=== PATIENT | female | born 1965 | race Caucasian/White ===

== ENCOUNTER → 2016-08-21 | Outpatient (CLI) | payer OTHER ==
[2016-08-21 08:25] LABS: HEMOGLOBIN 13.5 g/dL (11.7-16.4)
== END | disposition home or self-care (01) ==
LOC: LAB 08:05
PROVIDERS: ATTEND Physician Assistant
DX: R53.83 Other fatigue (principal); R42 Dizziness and giddiness
CPT/HCPCS: 36415; 85025

== ENCOUNTER → 2016-09-04 | Outpatient (CLI) | payer SELFPAY | END | disposition home or self-care (01) | LOC: CFH 14:40 | PROVIDERS: ATTEND Physician Assistant | DX: D25.2 Subserosal leiomyoma of uterus (principal); N85.2 Hypertrophy of uterus; N83.201 Unspecified ovarian cyst, right side; N85.00 Endometrial hyperplasia, unspecified | CPT/HCPCS: 76830 ==

== ENCOUNTER → 2016-11-19 | Outpatient (CLI) | payer OTHER ==
[~2016-11-19] MED LIST: IBUP800T PO; VITAMIN B; VITAMIN C; VITAMIN D
[2016-11-19 09:01] LABS: ASPARTATE AMINO TRANSFERASE 19 U/L (15-37); BLOOD UREA NITROGEN 12 mg/dL (7-18)
== END | disposition home or self-care (01) ==
LOC: STAR 07:59
PROVIDERS: ATTEND Specialist
DX: Z01.818 Encounter for other preprocedural examination (principal)
CPT/HCPCS: 36415; 71020; 80053; 84703; 85025; 85610; 85730; 93005

== ENCOUNTER 2016-11-30 06:51 | Inpatient (IN) | payer OTHER ==
[2016-11-19 08:17] VITALS: BP 123/81
[~2016-11-30] VITALS: Ht 165.1 cm; Wt 81.0 kg
[2016-11-30] MEDS ORDERED: ACET325T14 PO (07:26)
[2016-11-30] MEDS ORDERED: LIDOCAINE 1%, 2ML SQ PRN (07:30)
[2016-11-30] MEDS ORDERED: BUPIVACAINE/PF 0.25% ONE (07:43)
[2016-11-30] MEDS ORDERED: HEPARIN 1,000 UNITS/ML, 10ML ONE (07:43)
[2016-11-30 07:44] LABS: HCG UR OBC PASS
[2016-11-30] MEDS ORDERED: EPINEPHRINE 1 MG/ML, 1ML ONE (07:45)
[2016-11-30] MEDS: LACTATED RINGERS 1,000 ML IV SCH (08:10)
[2016-11-30] MEDS ORDERED: MIDAZOLAM 1 MG/ML, 2ML ONE (08:15)
[2016-11-30] MEDS ORDERED: FENTANYL PF 250 MCG/5ML ONE (08:15)
[2016-11-30] MEDS ORDERED: DEXAMETHASONE 4 MG/ML, 1ML ONE (09:34)
[2016-11-30] MEDS ORDERED: CEFOTETAN 2 GM ONE (09:34)
[2016-11-30] MEDS ORDERED: ROCURONIUM 10 MG/ML ONE (09:34)
[2016-11-30] MEDS ORDERED: KETOROLAC 30 MG/1 ML ONE (09:34)
[2016-11-30] MEDS ORDERED: ONDANSETRON 2MG/ML, 2ML ONE (09:34)
[2016-11-30] MEDS ORDERED: PROPOFOL 10 MG/ML, 20ML ONE (09:34)
[2016-11-30] MEDS ORDERED: LABETALOL 5MG/ML, 20ML IV PRN (11:00)
[2016-11-30] MEDS ORDERED: ONDANSETRON 2MG/ML, 2ML IVPush PRN ×2 (11:00→13:00)
[2016-11-30] MEDS ORDERED: FENTANYL PF 100 MCG/2ML IV PRN (11:00)
[2016-11-30] MEDS ORDERED: ACETAMINOPHEN 325 MG TABLET PO PRN (11:00)
[2016-11-30] MEDS ORDERED: OXYcodone 5 MG/5 ML ORAL.SOL UDC PO PRN (11:00)
[2016-11-30] MEDS ORDERED: MEPERIDINE/PF 25MG/0.5ML IVPush PRN (11:00)
[2016-11-30] MEDS ORDERED: PROMETHAZINE 25 MG/ML, 1ML IV PRN (11:00)
[2016-11-30] MEDS ORDERED: FENTANYL PF 100 MCG/2ML ONE (11:09)
[2016-11-30] MEDS ORDERED: MORPHINE SULFATE 4 MG/ML, 1ML ONE (12:03)
[2016-11-30] MEDS ORDERED: OXYcodone 5 MG/5 ML ORAL.SOL UDC ONE (12:49)
[2016-11-30] MEDS ORDERED: HYDROmorphone 1 MG/ML, 1ML ONE (12:49)
[2016-11-30] MEDS ORDERED: ACETAMINOPHEN 650 MG/20.3 ML UDC ONE (12:49)
[2016-11-30] MEDS: HYDROmorphone 1 MG/ML, 1ML IV PRN ×2 (12:55→13:11)
[2016-11-30] MEDS ORDERED: ACETAMINOPHEN 650 MG SUPP PR PRN (13:00)
[2016-11-30] MEDS ORDERED: ZOLPIDEM 5MG TABLET PO PRN (13:00)
[2016-11-30 14:23] VITALS: BP 94/63
[2016-11-30] MEDS: D5%-0.45NACL+KCL 20MEQ 1,000 ML IV SCH (16:56)
[2016-11-30] MEDS: KETOROLAC 30 MG/1 ML IVPush PRN (16:59)
[2016-11-30 19:33] VITALS: BP 105/68
[2016-11-30] MEDS: OXYcodone/APAP 5/325MG TABLET PO PRN (20:11)
[2016-12-01] MEDS: OXYcodone/APAP 5/325MG TABLET PO PRN ×2 (00:36→06:26)
[2016-12-01] MEDS: D5%-0.45NACL+KCL 20MEQ 1,000 ML IV SCH (01:12)
[2016-12-01 03:29] VITALS: BP 96/61
[2016-12-01] MEDS ORDERED: MEDROXYPROGESTERONE ACETATE 150 MG/ML IM ONE (05:00)
[2016-12-01 07:30] VITALS: BP 104/68
[2016-12-01] MEDS: KETOROLAC 30 MG/1 ML IVPush PRN ×3 (08:30→21:08)
[2016-12-01 13:08] VITALS: BP 103/68
[2016-12-01] MEDS: morphine SULFATE 10 MG/ML, 1ML IVPush PRN ×2 (17:15→17:59)
[2016-12-01 18:58] VITALS: BP 128/81
[2016-12-02] MEDS: OXYcodone/APAP 5/325MG TABLET PO PRN ×3 (01:17→13:16)
[2016-12-02 01:22] VITALS: BP 143/85
[2016-12-02] MEDS ORDERED: OXYC-223 PO (06:49)
[2016-12-02] MEDS ORDERED: ONDA4TAB13 SL (06:49)
[2016-12-02 07:30] VITALS: BP 122/79
[2016-12-02 08:00] VITALS: BP 122/79
[2016-12-02] MEDS: KETOROLAC 30 MG/1 ML IVPush PRN (11:05)
[2016-12-02 11:19] LABS: PATH.CAST-FLAG NOT PRESENT; SPERM-FLAG NOT PRESENT; SRC-FLAG NOT PRESENT; XTAL-FLAG NOT PRESENT; YLC-FLAG NOT PRESENT
== END 2016-12-02 14:25 | disposition home or self-care (01) | DRG 743 ==
LOC: OUT 06:51 → ORIP 12:31 → 3NW 14:12
PROVIDERS: ADMIT Specialist; ATTEND Specialist
PROC: 0UT2FZZ Resection of Bilateral Ovaries, Via Natural or Artificial Opening With Percutaneous Endoscopic Assistance (ICD-10-PCS; 2016-11-30)
PROC: 0UT7FZZ Resection of Bilateral Fallopian Tubes, Via Natural or Artificial Opening With Percutaneous Endoscopic Assistance (ICD-10-PCS; 2016-11-30)
PROC: 0DQP4ZZ Repair Rectum, Percutaneous Endoscopic Approach (ICD-10-PCS; 2016-11-30)
PROC: 8E0W4CZ Robotic Assisted Procedure of Trunk Region, Percutaneous Endoscopic Approach (ICD-10-PCS; 2016-11-30)
PROC: 0UT9FZZ Resection of Uterus, Via Natural or Artificial Opening With Percutaneous Endoscopic Assistance (ICD-10-PCS; principal; 2016-11-30 09:30)
DX: D25.9 Leiomyoma of uterus, unspecified (principal); N80.3 Endometriosis of pelvic peritoneum; Z88.5 Allergy status to narcotic agent; Z80.3 Family history of malignant neoplasm of breast; Z80.8 Family history of malignant neoplasm of other organs or systems
CPT/HCPCS: 36415; 81001; 81025; 85025; 86850; 86900; 86923; 87086; 88307; 88331; C1729; J0171; J1100; J1170; J1644; J1885; J2250; J2405; J2704; J3010; J3490; J1050; J2270; J3480; J7120; S0074

== ENCOUNTER → 2017-07-21 | Outpatient (CLI) | payer OTHER ==
[~2017-07-21] MED LIST changes: +ACET325T14 PO; +IBUP-1223 PO; -IBUP800T PO; +ONDA4TAB13 SL; +OXYC-306 PO
== END ==
LOC: CFH 08:06
PROVIDERS: ATTEND Specialist
DX: Z13.820 Encounter for screening for osteoporosis (principal); Z78.0 Asymptomatic menopausal state
CPT/HCPCS: 77080

== ENCOUNTER → 2018-11-21 | Outpatient (CLI) | payer OTHER ==
[2018-11-21 11:01] LABS: BASOPHILS # (AUTO) 0.04 x10^3/uL (0-0.1); BASOPHILS % (AUTO) 1 % (0-1); EOSINOPHILS # (AUTO) 0.16 x10^3/uL (0-0.4); EOSINOPHILS % (AUTO) 2 % (1-7); LYMPHOCYTES # (AUTO) 2.08 x10^3/uL (1-3.4); LYMPHOCYTES % (AUTO) 29 % (22-44); MD NO; MEAN CORPUSCULAR HEMOGLOBIN 30.3 pg (27.0-34.8); MEAN CORPUSCULAR HGB CONC 33.2 g/dL (32.4-35.8); MEAN CORPUSCULAR VOLUME 91.3 fL (80-100); MEAN PLATELET VOLUME 8.1 fL (7.4-10.4); MONOCYTES # (AUTO) 0.51 x10^3/uL (0.2-0.8); MONOCYTES % (AUTO) 7 % (2-9); NEUTROPHILS # (AUTO) 4.47 x10^3/uL (1.8-6.8); NEUTROPHILS % (AUTO) 62 % (42-75); PLATELET COUNT 311 x10^3/uL (130-400); RED BLOOD COUNT 5.28 x10^6/uL (3.82-5.3); RED CELL DISTRIBUTION WIDTH 14.5 % (9.6-15.2)
[2018-11-21 11:13] LABS: ALANINE AMINOTRANSFERASE 33 U/L (12-78); ALBUMIN 3.8 g/dL (3.4-5.0); ANION GAP 9 mmol/L (5-15); CALCIUM 9.5 mg/dL (8.5-10.1); CHLORIDE 104 mmol/L (98-107)
[2018-11-21 11:22] LABS: ALKALINE PHOSPHATASE 124 U/L (45-117); BILIRUBIN,TOTAL 0.5 mg/dL (0.2-1.0); CHOL/HDL RATIO 2.6; CHOLESTEROL, TOTAL 206 mg/dL (140-239); CREATININE 0.89 mg/dL (0.55-1.02); FREE T4 (FREE THYROXINE) 0.94 ng/dL (0.76-1.46); HDL CHOL % 38 % (28-40); HDL CHOLESTEROL (DIRECT) 79 mg/dL (40-60); LDL CHOLESTEROL,CALCULATED 105 mg/dL (54-169); LDL/HDL RATIO 1.3 (0.5-3.0); TOTAL PROTEIN 7.9 g/dL (6.4-8.2); TRIGLYCERIDES 108 mg/dL (50-200); VLDL CHOLESTEROL 22 mg/dL (0-25)
[2018-11-21 12:06] LABS: HEMOGLOBIN A1C 5.9 % (4.2-6.3)
== END | disposition home or self-care (01) ==
LOC: LAB 10:49
PROVIDERS: ATTEND Nurse Practitioner
DX: I10 Essential (primary) hypertension (principal); N95.9 Unspecified menopausal and perimenopausal disorder; R73.03 Prediabetes
CPT/HCPCS: 36415; 80053; 80061; 82306; 83036; 84439; 84443; 84480; 85025

== ENCOUNTER 2018-12-05 07:10 | Outpatient (CLI) | payer OTHER | END 2018-12-05 23:59 | disposition home or self-care (01) | LOC: CFH 07:10 | PROVIDERS: ATTEND Nurse Practitioner | DX: Z12.31 Encounter for screening mammogram for malignant neoplasm of breast (principal) | CPT/HCPCS: 77063; 77067 ==

== ENCOUNTER → 2020-12-13 | Outpatient (CLI) | payer OTHER ==
[~2020-12-13] MED LIST changes: +AMOX1TAB61 PO; +OMNIPAQUE 350 MG/ML, 100ML BOTTLE ONE; -OXYC-306 PO; +OXYC1TAB17 PO
== END | disposition home or self-care (01) ==
LOC: CFH 14:07
PROVIDERS: ATTEND Nurse Practitioner Family
DX: K76.0 Fatty (change of) liver, not elsewhere classified (principal); K57.30 Diverticulosis of large intestine without perforation or abscess without bleeding
CPT/HCPCS: 74177; Q9967

== ENCOUNTER 2020-12-14 08:28 | Emergency (ER) | payer OTHER ==
[~2020-12-14] VITALS: Ht 165.1 cm; Wt 86.6 kg
[~2020-12-14 08:28] MED LIST changes: -AMOX1TAB61 PO; -OMNIPAQUE 350 MG/ML, 100ML BOTTLE ONE
[2020-12-14] MEDS ORDERED: AMOX1TAB61 PO (08:46)
--- NOTE | 2020-12-14 08:47 | NUR ---
THIS IS A 55 YEAR OLD FEMALE WHO C.O "FACE RED & PUFFY" AFTER 2ND DOSE OF AUGMENTIN (DX: DIVERTICULITIS) THIS AM ~0700, DENIES RESP DISTRESS, OR SWALLOWING DIFFICULTIES.
[2020-12-14] MEDS ORDERED: FAMOTIDINE 20 MG TABLET PO ONE (09:30)
[2020-12-14] MEDS ORDERED: DIPHENHYDRAMINE 50 MG/ML, 1ML IM ONE (09:30)
[2020-12-14] MEDS ORDERED: DIPHENHYDRAMINE 50 MG/ML, 1ML ONE (09:32)
[2020-12-14] MEDS ORDERED: FAMOTIDINE 20 MG TABLET ONE (09:32)
--- NOTE | 2020-12-14 09:37 | NUR ---
TASK RN NOTE: PT MEDICATED PER EMAR, TOLERATED WELL. COUNSELLED THAT SHE MAY NOT DRIVE TODAY D/T SEDATIVE EFFECT OF BENADRYL. PT STATES SHE HAS NOT TAKEN BENADRYL YET TODAY. PT A&O, RESPS EVEN AND UNLABORED, NO ANGIOEDEMA, NO S/SX ASPIRATION. BP AND SPO2 MONITORS IN PLACE. CALL LIGHT IN REACH. AWAITING FURTHER ORDERS AT THIS TIME.
[2020-12-14 09:39] VITALS: BP 132/87
--- NOTE | 2020-12-14 10:02 | NUR ---
Patient/Caregiver given discharge instructions and they have confirmed that they understand the instructions. Patient ambulatory with steady gait. NAD, all questions answered appropriately, denies additional needs at this time. No personal belongings left in room after discharge.
== END 2020-12-14 10:04 | disposition home or self-care (01) ==
LOC: ED 08:44
DX: K57.32 Diverticulitis of large intestine without perforation or abscess without bleeding (principal); T36.0X5A Adverse effect of penicillins, initial encounter; R21 Rash and other nonspecific skin eruption; Y92.9 Unspecified place or not applicable
CPT/HCPCS: 96372; 99283; J1200

== ENCOUNTER 2021-01-16 07:16 | Outpatient (CLI) | payer OTHER ==
[~2021-01-16 07:16] MED LIST changes: +AMOX1TAB61 PO; +OXYC1TAB16 PO; -OXYC1TAB17 PO
[2021-01-16 08:09] LABS: ALBUMIN 3.9 g/dL (3.4-5.0); ANION GAP 7 mmol/L (5-15); CHLORIDE 103 mmol/L (98-107); MEAN CORPUSCULAR HEMOGLOBIN 29.9 pg (27.0-34.8); MEAN CORPUSCULAR HGB CONC 33.5 g/dL (32.4-35.8); PLATELET COUNT 275 x10^3/uL (130-400); RED BLOOD COUNT 5.23 x10^6/uL (3.82-5.3); RED CELL DISTRIBUTION WIDTH 13.8 % (9.6-15.2)
[2021-01-16 08:38] LABS: ALANINE AMINOTRANSFERASE 66 U/L (12-78); ALKALINE PHOSPHATASE 106 U/L (45-117); BILIRUBIN,TOTAL 0.6 mg/dL (0.2-1.0); CHOLESTEROL, TOTAL 201 mg/dL (140-239); CREATININE 0.79 mg/dL (0.55-1.02); HDL CHOL % 33 % (28-40); HDL CHOLESTEROL (DIRECT) 66 mg/dL (40-60); LDL CHOLESTEROL,CALCULATED 115 mg/dL (54-169); LDL/HDL RATIO 1.7 (0.5-3.0); TRIGLYCERIDES 101 mg/dL (50-200); VLDL CHOLESTEROL 20 mg/dL (0-25)
== END 2021-01-16 23:59 | disposition home or self-care (01) ==
LOC: LAB 07:16
PROVIDERS: ATTEND Family Medicine
DX: R03.0 Elevated blood-pressure reading, without diagnosis of hypertension (principal); K57.90 Diverticulosis of intestine, part unspecified, without perforation or abscess without bleeding; K57.92 Diverticulitis of intestine, part unspecified, without perforation or abscess without bleeding; R73.03 Prediabetes
CPT/HCPCS: 36415; 80053; 80061; 82306; 82607; 84443; 85027